=== PATIENT | female | born 1985 | race African-American/Black ===

== ENCOUNTER 2017-01-05 14:38 | Emergency (ER) | payer MEDICAID ==
[2011-03-22 06:07] VITALS: BMI 44.4
[2017-01-05 16:10] LABS: APPEARANCE HAZY (CLEAR); COLOR YELLOW (YELLOW)
[2017-01-05 16:11] LABS: BACTERIA MODERATE /hpf (NONE SEEN); BILIRUBIN NEGATIVE (NEGATIVE); GLUCOSE NEGATIVE (NEGATIVE); KETONE NEGATIVE (NEGATIVE); MUCUS >1+ /lpf (NONE SEEN); NITRITE NEGATIVE (NEGATIVE); PROTEIN NEGATIVE (NEGATIVE); UROBILINOGEN NORMAL (NORMAL); WHITE CELLS - URINE 25-50 /hpf (0-5)
== END 2017-01-05 17:23 | disposition home or self-care (01) ==
LOC: D.ER 14:38
PROVIDERS: Emergency Medicine
DX: N39.0 Urinary tract infection, site not specified (principal); M54.5 Low back pain